=== PATIENT | male | born 1990 | race Caucasian/White ===

== ENCOUNTER → 2020-02-11 | Outpatient (CLI) | payer BC | LOC: ZCOL.LAB 16:51 | DX: Z20.828 Contact with and (suspected) exposure to other viral communicable diseases (principal) ==

== ENCOUNTER → 2020-04-21 | Outpatient (CLI) | payer BC | LOC: COL.VAS 13:22 | DX: N17.9 Acute kidney failure, unspecified (principal) ==

== ENCOUNTER 2020-05-27 07:18 | Day surgery (SDC) | payer BC ==
[2020-05-27] VITALS (7 sets, daily range): BP systolic 83–118; BP diastolic 48–68; PULSE 16–98; TEMP 98.2–98.3
[~2020-05-27] VITALS: Ht 180.3 cm; Wt 93.3 kg
[2020-05-27] MEDS ORDERED: SEROQUEL50 MG PO (07:58)
[2020-05-27] MEDS ORDERED: EFFEXOR 75M75 MG/TAB PO (07:58)
[2020-05-27] MEDS ORDERED: PRENATAL VIT + LOWFE PO (07:58)
[2020-05-27] MEDS ORDERED: XIFAXAN550 MG PO (07:59)
[2020-05-27] MEDS ORDERED: ZYRTEC 10MG10 MG PO (08:00)
[2020-05-27] MEDS ORDERED: NATURE'S BLEND100 M2 PO (08:01)
[2020-05-27] MEDS ORDERED: SODIUM BICARBO650 MG PO (08:01)
[2020-05-27 08:39] LABS: INR 1.4 (0.8-3.0); PROTHROMBIN TIME 15.3 SECONDS (9.7-12.8)
[2020-05-27 08:53] LABS: ALBUMIN 3.9 gm/dL (3.5-5.0); BILIRUBIN,TOTAL 0.9 mg/dL (0.0-1.0); CREATININE, serum 4.32 (0.66-1.25); POTASSIUM 4.8 mmol/L (3.4-5.0); TOTAL PROTEIN 7.1 gm/dL (6.4-8.2)
--- NOTE | 2020-05-27 10:33 | NUR ---
TO RM 7 PER CART FROM OR. ALERT ORIENTED X3, TALKING TO STAFF AND FATHER. STODDARD SET DRESSING OVER INCISION SITE. PULSE + IN L WRIST WITH A WEAK THRILL. RECEIVED ICE TEA. PATIENT STATED " I JUST WANT TO GO HOME."
--- NOTE | 2020-05-27 10:45 | NUR ---
RECEIVED BLUE CHAN MUFFIN. AFTER SITTING PATIENT UP TO EAT, B/P WENT DOWN.
--- NOTE | 2020-05-27 11:00 | NUR ---
AFTER EATING MUFFIN HEAD OF BED LOWERED.
--- NOTE | 2020-05-27 11:35 | NUR ---
PATIENT STILL EAGER TO GO HOME.
--- NOTE | 2020-05-27 11:40 | NUR ---
DISCHARGED PER WC BY NURSING STAFF TO PRIVATE CAR IN OF FATHER -[place]
--- NOTE | 2020-05-27 11:40 | NUR ---
RECEIVED DISCHARGE INSTRUCTIONS AND VERBALIZED UNDERSTANDING WITH FATHER AT HIS SIDE
--- NOTE | 2020-05-27 11:50 | NUR ---
DISCHARGED PER WC BY NURSING STAFF TO PRIVATE CAR IN OF FATHER.
== END 2020-05-27 12:00 | disposition home or self-care (01) ==
LOC: SDCO 07:18
PROVIDERS: Surgery
DX: N18.6 End stage renal disease (principal); D63.1 Anemia in chronic kidney disease; K70.31 Alcoholic cirrhosis of liver with ascites; F10.11 Alcohol abuse, in remission; K76.7 Hepatorenal syndrome; Z99.2 Dependence on renal dialysis; F32.9 Major depressive disorder, single episode, unspecified; Z79.899 Other long term (current) drug therapy; Z88.8 Allergy status to other drugs, medicaments and biological substances
CPT/HCPCS: J0690; J1644; J2250; J2704; J3010

== ENCOUNTER 2020-06-16 19:47 | Emergency (ER) | payer BC ==
[~2020-06-16] VITALS: Ht 182.9 cm; Wt 90.9 kg
[~2020-06-16 19:47] MED LIST: EFFEXOR 75M75 MG/TAB PO; NATURE'S BLEND100 M2 PO; PRENATAL VIT + LOWFE PO; SEROQUEL50 MG PO; SODIUM BICARBO650 MG PO; XIFAXAN550 MG PO; ZYRTEC 10MG10 MG PO
[2020-06-16 19:58] VITALS: TEMP 98.3
[2020-06-16 20:38] LABS: HEMOGLOBIN 10.4 g/dl (13.5-18.0); MEAN CELL VOLUME 91 fl (80.0-100.0); MEAN CORPUSCULAR HEMOGLOBIN 29 pg (27.0-31.0); MEAN CORPUSCULAR HGB CONC 32 g/dl (33.0-37.0); MEAN PLATELET VOLUME 8.3 fl (7.4-10.4); PLATELET COUNT 268 K/mm3 (130-400); RED BLOOD COUNT 3.61 M/mm3 (4.20-5.60); REDCELL DISTRIBUTION WIDTH-CV 13.1 % (11.5-14.5)
[2020-06-16 20:53] LABS: HEMATOCRIT 32.7 % (42.0-52.0)
[2020-06-16 20:54] LABS: ALBUMIN 4.8 gm/dL (3.5-5.0); BILIRUBIN,TOTAL 1.1 mg/dL (0.0-1.0); CALCIUM 10.5 mg/dL (8.4-10.2); CREATININE, serum 2.77 (0.66-1.25); MAGNESIUM 2.1 mg/dL (1.6-2.3); POTASSIUM 3.7 mmol/L (3.4-5.0); TOTAL PROTEIN 8.7 gm/dL (6.4-8.2)
[2020-06-16 21:24] LABS: BAND 3 % (0-10); EOSINOPHIL 3 % (0-4); LYMPHOCYTE 19 % (20.0-51.0); METAMYELOCYTE 1 % (0-0); MYELOCYTE 1 % (0-0); NEUTROPHILS 69 % (42.0-75.2); PLATELET ESTIMATE NORMAL (NORMAL)
[2020-06-16 22:01] VITALS: BP 123/82; PULSE 98
== END 2020-06-16 22:01 | disposition home or self-care (01) ==
LOC: COL.ER 19:47
PROVIDERS: Emergency Medicine
DX: R00.0 Tachycardia, unspecified (principal); E86.9 Volume depletion, unspecified; N18.6 End stage renal disease; Z99.2 Dependence on renal dialysis; Z95.9 Presence of cardiac and vascular implant and graft, unspecified